=== PATIENT | female | born 1950 | race Two or more races ===

== ENCOUNTER → 2016-07-02 | Day surgery (SDC) | payer MEDICAID ==
[~2016-07-02] MED LIST: AML5T PO; ANGIOMAX 250 MG VIAL IV ONE; HCTZ25T PO; IOHEXOL 350 MG/ML 100ML IJ ONE; LIDOCAINE 2%HCL (LOCAL ANESTH.) INJ 20ML MDV ONE; METO-158 PO; MIDAZOLAM HCL 1MG/1ML-2 ML VIAL ONE; OMEP20CA5 PO; PRAV20TA3 PO; SODIUM CHL 0.9% 0 ML ONE; fentaNYL CITRATE 100 MCG/2 ML VL ONE
== END | disposition home or self-care (01) ==
LOC: CATH 10:45
PROVIDERS: ATTEND Internal Medicine Cardiovascular Disease
DX: R94.39 Abnormal result of other cardiovascular function study (principal); I10 Essential (primary) hypertension; E11.9 Type 2 diabetes mellitus without complications; E78.5 Hyperlipidemia, unspecified; E66.9 Obesity, unspecified
CPT/HCPCS: 93458; C1760; C1894; J1644; J3010; J7030; Q9967; 99152; J2250